=== PATIENT | female | born 1960 | race Caucasian/White ===

== ENCOUNTER 2016-08-08 14:50 | Outpatient (CLI) | payer OTHER | END 2016-08-08 14:51 | disposition home or self-care (01) | DX: M79.89 Other specified soft tissue disorders (principal) ==

== ENCOUNTER 2017-06-26 18:46 | Emergency (ER) | payer OTHER ==
[2017-06-26 18:52] VITALS: BP 149/118
[2017-06-26] MEDS ORDERED: ACETAMINOPHEN 325 MG TABLET PO STA (19:11)
[2017-06-26] MEDS ORDERED: PENICILLIN VK 250 MG TABLET PO STA (19:11)
--- NOTE | 2017-06-26 19:13 | ED Physician Documentation ---
PD HPI HEENT - Stated complaint Stated Complaint: TOOTH PX - Chief complaint Chief Complaint: Heent - History obtained from History obtained from: Patient - History of Present Illness Timing - onset: How many days ago (2) Timing - duration: Days (2) Timing - details: Gradual onset Pain level max: 9 Pain level now: 9 Location: Tooth (lower left molar, crown in place) Improves: Medication (motrin) Worsens: Other (chewing) Associated symptoms: No: Fever, Congestion, Rhinorrhea, Trismus, Unable to swallow, Swollen nodes Similar symptoms before: Diagnosis (dental caries) Recently seen: Not recently seen Review of Systems Constitutional: denies: Fever Respiratory: denies: Cough GI: denies: Abdominal Pain, Vomiting, Diarrhea Skin: denies: Rash PD PAST MEDICAL HISTORY - Past Medical History Past Medical History: Yes Cardiovascular: Hypertension Musculoskeletal: Rheumatoid arthritis - Past Surgical History 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 - Present Medications Home Medications: Ambulatory Orders Medication Instructions Recorded Confirmed Celecoxib [CeleBREX] 200 mg PO DAILY 06/26/17 06/26/17 Flaxseed Oil 1 tab PO DAILY 06/26/17 06/26/17 Hydroxychloroquine [Plaquenil] 400 mg PO DAILY 06/26/17 06/26/17 Leflunomide 10 mg PO DAILY 06/26/17 06/26/17 Lisinopril 1 mg PO DAILY 06/26/17 06/26/17 Penicillin V Potassium 500 mg PO Q6HR #40 tablet 06/26/17 Spironolactone 1 tab PO DAILY 06/26/17 06/26/17 Turmeric Root Extract [Turmeric] 1 tab PO DAILY 06/26/17 06/26/17 predniSONE [Prednisone] 1 tab PO DAILY 06/26/17 06/26/17 - Allergies Allergies/Adverse Reactions: Allergies Allergy/AdvReac Type Severity Reaction Status Date / Time Sulfa (Sulfonamide Allergy Itching Verified 06/26/17 18:53 Antibiotics) Tetracyclines Allergy Nausea Verified 06/26/17 18:53 - Social History Does the pt smoke?: No Smoking Status: Never smoker Does the pt drink ETOH?: Yes ETOH Use: Wine Does the pt have substance abuse?: No - Immunizations Immunizations are current?: Yes - POLST Patient has POLST: No PD ED PE NORMAL - Vitals Vital signs reviewed: Yes - General General: Alert and oriented X 3, No acute distress - HEENT HEENT: Moist mucous membranes, Other (L lower molar - TTP. No gingival swelling or drainable abscess. No facial swelling or cellulitis) - Neck Neck: Supple, no meningeal sign - Cardiac Cardiac: RRR - Respiratory Respiratory: No respiratory distress, Clear bilaterally - Derm Derm: Warm and dry - Neuro Neuro: Alert and oriented X 3 - Psych Psych: Normal mood, Normal affect Results - Vitals Vitals: Vital Signs - 24 hr 06/26/17 18:48 Temperature 36.8 C Heart Rate 95 Respiratory 18 Rate Blood Pressure 149/118 H O2 Saturation 100 Oxygen O2 Source Room air PD MEDICAL DECISION MAKING - ED course Complexity details: considered differential, d/w patient ED course: Patient is a 56-year-old female with what appears to be a dental infection. Will place on antibiotics and follow-up closely with her doctor. No drainable abscess. She is well-appearing, nontoxic. Afebrile. No Arjun's angina. Patient counseled regarding signs and symptoms for which I believe and urgent re -evaluation would be necessary. Patient with good understanding of and agreement to plan and is comfortable going home at this time This document was made in part using voice recognition software. While efforts are made to proofread this document, sound alike and grammatical errors may occur. Departure - Departure Disposition: 01 Home, Self Care Clinical Impression: Dental caries Condition: Good Instructions: ED Cavity Dental Follow-Up: Caitlin Rivera MD [Primary Care Provider] - Prescriptions: Penicillin V Potassium 500 mg PO Q6HR #40 tablet Comments: Take all antibiotics until gone. You can also use Tylenol in addition to the Motrin for pain. Return if you worsen. You need to follow-up with your dentist early next week for further care. Discharge Date/Time: 06/26/17 19:21
== END 2017-06-26 19:21 | disposition home or self-care (01) ==
LOC: ED 18:46
DX: K02.9 Dental caries, unspecified (principal); I10 Essential (primary) hypertension; M06.9 Rheumatoid arthritis, unspecified; Z79.52 Long term (current) use of systemic steroids
CPT/HCPCS: 99283; A9270

== ENCOUNTER 2017-06-28 05:12 | Emergency (ER) | payer OTHER ==
[2017-06-28] MEDS ORDERED: CLINDAMYCIN 900 MG/50 ML 50 ML IV ONE (05:57)
[2017-06-28] MEDS ORDERED: KETOROLAC 60 MG/2 ML VIAL IVP STA (05:57)
--- NOTE | 2017-06-28 06:01 | ED Physician Documentation ---
PD HPI HEENT - Stated complaint Stated Complaint: FACIAL SWELLING,TOOTH PAIN - Chief complaint Chief Complaint: Heent - History obtained from History obtained from: Patient - History of Present Illness Timing - onset: How many days ago (4) Location: Tooth Associated symptoms: Facial swelling, Headache. No: Fever Recently seen: Emergency Dept (2 days ago; started on PCN at that time.) - Treatment prior to arrival Treatment prior to arrival: PCN, Tylenol and Ibuprophen. - Additional information Additional information: The patient is a 56-year-old female who presents with left facial swelling. She has had a toothache in the left lower premolar for the past 4 days. She was seen here 2 days ago and was started on penicillin. She has been using Tylenol and ibuprofen for pain. Yesterday she developed left facial swelling, and it has become worse this morning. She reports associated headache. She denies fever, sore throat, or difficulty swallowing. She denies history of similar symptoms in the past. Review of Systems Constitutional: denies: Fever Eyes: denies: Irritation Ears: denies: Ear pain Nose: denies: Congestion Throat: reports: Dental pain / toothache. 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 - Present Medications Home Medications: Ambulatory Orders Medication Instructions Recorded Confirmed Celecoxib [CeleBREX] 200 mg PO DAILY 06/26/17 06/26/17 Flaxseed Oil 1 tab PO DAILY 06/26/17 06/26/17 Hydroxychloroquine [Plaquenil] 400 mg PO DAILY 06/26/17 06/26/17 Leflunomide 10 mg PO DAILY 06/26/17 06/26/17 Lisinopril 1 mg PO DAILY 06/26/17 06/26/17 Penicillin V Potassium 500 mg PO Q6HR #40 tablet 06/26/17 Spironolactone 1 tab PO DAILY 06/26/17 06/26/17 Turmeric Root Extract [Turmeric] 1 tab PO DAILY 06/26/17 06/26/17 predniSONE [Prednisone] 1 tab PO DAILY 06/26/17 06/26/17 Clindamycin HCl [Clindamycin 150MG 300 mg PO QID #56 capsule 06/28/17 CAP] HYDROcod/ACETAM 5/325 [Camp 5/325] 1 - 2 ea PO Q6H PRN #15 tablet 06/28/17 - Allergies Allergies/Adverse Reactions: Allergies Allergy/AdvReac Type Severity Reaction Status Date / Time Sulfa (Sulfonamide Allergy Itching Verified 06/28/17 05:21 Antibiotics) Tetracyclines Allergy Nausea Verified 06/28/17 05:21 - Social History Does the pt smoke?: No Smoking Status: Never smoker Does the pt drink ETOH?: Yes Does the pt have substance abuse?: No - Immunizations Immunizations are current?: Yes - POLST Patient has POLST: No PD ED PE NORMAL - Vitals Vital signs reviewed: Yes (Initially hypertensive.) - General General: Alert and oriented X 3, Well developed/nourished - HEENT HEENT: Atraumatic, EOMI, Ears normal, Pharynx benign, Other (There is swelling of the left mandibular portion of the face, with associated tenderness to palpation. There is tenderness to palpation of the left lower premolar. No Arjun's angina.) - Neck Neck: Supple, no meningeal sign, No adenopathy - Cardiac Cardiac: RRR, No murmur - Respiratory Respiratory: No respiratory distress, Clear bilaterally - Abdomen Abdomen: Soft - Derm Derm: No rash - Extremities Extremities: No edema - Neuro Neuro: Alert and oriented X 3, No motor deficit, Normal speech Results - Vitals Vitals: Vital Signs - 24 hr 06/28/17 06/28/17 05:18 07:16 Temperature 37.2 C Heart Rate 101 H 86 Respiratory 18 16 Rate Blood Pressure 188/105 H 155/97 H O2 Saturation 97 98 Oxygen O2 Source Room air Procedures - Abscess I&D (location) dental Preparation: Lidocaine 2 %, With epi Incision: Needle aspiration (No pus obtained.) Other: Pt tolerated well, Antibiotic prescribed PD MEDICAL DECISION MAKING - ED course Complexity details: reviewed old records, re-evaluated patient, considered differential, d/w patient ED course: The patient's presentation is significant for dental abscess with left facial swelling in the mandibular region. This is a progression of infection despite 2 days of antibiotic therapy with penicillin. Treatment in the emergency department included administration of clindamycin 900 mg IV. Needle aspiration was performed, but no pus was obtained. She is being discharged with prescription for clindamycin, and for Vicodin, 15 tablets. I discussed with her the antibiotic treatment, importance of urgent dental follow-up, as well as potentially worrisome signs or symptoms that should prompt reevaluation in the emergency department. Departure - Departure Disposition: 01 Home, Self Care Clinical Impression: Dental abscess Condition: Stable Instructions: ED Abscess Dental Follow-Up: Caitlin Rivera MD [Primary Care Provider] - Prescriptions: Clindamycin HCl [Clindamycin 150MG CAP] 300 mg PO QID #56 capsule HYDROcod/ACETAM 5/325 [Camp 5/325] 1 - 2 ea PO Q6H PRN #15 tablet PRN Reason: Pain Comments: Take clindamycin 4 times daily as prescribed. You can use Vicodin as prescribed as needed for pain. Follow up with your dentist as planned. Return to the emergency department if you develop increasing facial swelling, difficulty swallowing, or otherwise worsening symptoms. Discharge Date/Time: 06/28/17 07:44
[2017-06-28 07:19] VITALS: BP 155/97
== END 2017-06-28 07:44 | disposition home or self-care (01) ==
LOC: ED 05:12
DX: K04.7 Periapical abscess without sinus (principal); I10 Essential (primary) hypertension; M06.9 Rheumatoid arthritis, unspecified
CPT/HCPCS: 41800; 96365; 96375; 99283

== ENCOUNTER 2020-04-11 09:30 | Outpatient (CLI) | payer OTHER ==
[2020-04-11 09:57] LABS: BASOPHILS # (AUTO) 0.1 10^3/uL (0.0-0.1); BASOPHILS % (AUTO) 0.9 %; EOSINOPHILS # (AUTO) 0.2 10^3/uL (0.0-0.7); EOSINOPHILS % (AUTO) 2.8 %; HGB - HEMOGLOBIN 12.3 g/dL (12.0-16.0); LYMPHOCYTES # (AUTO) 1.6 10^3/uL (1.5-3.5); MEAN CORPUSCULAR HEMOGLOBIN 31.1 pg (27.0-31.0); MEAN CORPUSCULAR HGB CONC 31.9 g/dL (32.0-36.0); MEAN CORPUSCULAR VOLUME 97.2 fL (81.0-99.0); MEAN PLATELET VOLUME 9.2 fL (7.9-10.8); MONOCYTES # (AUTO) 0.3 10^3/uL (0.0-1.0); MONOCYTES % (AUTO) 6.2 %; NEUTROPHILS # (AUTO) 3.2 10^3/uL (1.5-6.6); NEUTROPHILS % (AUTO) 59.7 %; PLT - PLATELET COUNT 329 10^3/uL (130-450); RED BLOOD COUNT 3.96 10^6/uL (4.20-5.40); RED CELL DISTRIBUTION WIDTH 13.2 % (12.0-15.0); WHITE BLOOD COUNT 5.3 x10^3/uL (4.8-10.8)
[2020-04-11 10:13] LABS: ALBUMIN 4.5 g/dL (3.2-5.5); ALBUMIN/GLOBULIN RATIO 1.7 (1.0-2.2); ALKALINE PHOSPHATASE 60 IU/L (42-121); ALT ALANINE AMINOTRANSFERASE 22 IU/L (10-60); AST ASPARTATE AMINOTRANSFERASE 21 IU/L (10-42); BILIRUBIN,TOTAL 0.8 mg/dL (0.2-1.0); BUN - BLOOD UREA NITROGEN 15 mg/dL (6-20); CARBON DIOXIDE - CO2 27 mmol/L (21-32); CHLORIDE 104 mmol/L (101-111); CHOL/HDL RATIO 3.9 (<4.4); CHOLESTEROL 311 mg/dL; CREATININE 0.6 mg/dL (0.4-1.0); GLUCOSE 93 mg/dL (70-100); HDL CHOLESTEROL 79 mg/dL; LDL CHOLESTEROL,CALCULATED 210 mg/dL; LDL/HDL RATIO 2.7 (<4.4); SODIUM 141 mmol/L (135-145); TOTAL PROTEIN 7.2 g/dL (6.7-8.2); VLDL CHOLESTEROL 22 mg/dL
== END 2020-04-11 09:31 | disposition home or self-care (01) ==
LOC: LAB 09:30
PROVIDERS: ATTEND Internal Medicine Rheumatology
DX: M06.09 Rheumatoid arthritis without rheumatoid factor, multiple sites (principal); Z79.899 Other long term (current) drug therapy
CPT/HCPCS: 36415; 80053; 80061; 83721; 85025

== ENCOUNTER 2020-09-27 08:53 | Outpatient (CLI) | payer MEDICAID ==
[2020-09-27 09:13] LABS: BASOPHILS # (AUTO) 0.1 10^3/uL (0.0-0.1); BASOPHILS % (AUTO) 1.1 %; EOSINOPHILS # (AUTO) 0.2 10^3/uL (0.0-0.7); EOSINOPHILS % (AUTO) 4.2 %; HCT - HEMATOCRIT 39.1 % (37.0-47.0); LYMPHOCYTES # (AUTO) 1.2 10^3/uL (1.5-3.5); LYMPHOCYTES % (AUTO) 21.7 %; MEAN CORPUSCULAR HGB CONC 33.2 g/dL (32.0-36.0); MEAN CORPUSCULAR VOLUME 93.3 fL (81.0-99.0); MEAN PLATELET VOLUME 9.2 fL (7.9-10.8); MONOCYTES # (AUTO) 0.3 10^3/uL (0.0-1.0); MONOCYTES % (AUTO) 5.8 %; NEUTROPHILS # (AUTO) 3.7 10^3/uL (1.5-6.6); PLT - PLATELET COUNT 314 10^3/uL (130-450); RED BLOOD COUNT 4.19 10^6/uL (4.20-5.40); WHITE BLOOD COUNT 5.5 x10^3/uL (4.8-10.8)
[2020-09-27 09:26] LABS: ALBUMIN 4.5 g/dL (3.2-5.5); ALBUMIN/GLOBULIN RATIO 1.7 (1.0-2.2); ALKALINE PHOSPHATASE 68 IU/L (42-121); ALT ALANINE AMINOTRANSFERASE 16 IU/L (10-60); AST ASPARTATE AMINOTRANSFERASE 19 IU/L (10-42); BILIRUBIN,TOTAL 0.9 mg/dL (0.2-1.0); BUN - BLOOD UREA NITROGEN 17 mg/dL (6-20); CALCIUM 9.9 mg/dL (8.5-10.3); CARBON DIOXIDE - CO2 26 mmol/L (21-32); CHLORIDE 102 mmol/L (101-111); CHOL/HDL RATIO 3.8 (<4.4); CHOLESTEROL 238 mg/dL; CREATININE 0.7 mg/dL (0.4-1.0); GFR - MDRD 86 (>89); GLUCOSE 102 mg/dL (70-100); HDL CHOLESTEROL 63 mg/dL; LDL CHOLESTEROL,CALCULATED 151 mg/dL; LDL/HDL RATIO 2.4 (<4.4); SODIUM 137 mmol/L (135-145); TOTAL PROTEIN 7.2 g/dL (6.7-8.2); TRIGLYCERIDES 120 mg/dL; VLDL CHOLESTEROL 24 mg/dL
[2020-09-27 09:52] LABS: CRP - C-REACTIVE PROTEIN < 1.0 mg/dL (0-1.0)
== END 2020-09-27 08:54 | disposition home or self-care (01) ==
LOC: LAB 08:53
PROVIDERS: ATTEND Internal Medicine Rheumatology
DX: M06.00 Rheumatoid arthritis without rheumatoid factor, unspecified site (principal); Z13.220 Encounter for screening for lipoid disorders
CPT/HCPCS: 36415; 80053; 80061; 83721; 85025; 86140

== ENCOUNTER 2021-05-03 19:06 | Emergency (ER) | payer BC ==
[2021-05-03 19:16] VITALS: BP 188/97
[2021-05-03] MEDS ORDERED: AMOX/CLAV 875 MG/125 MG TABLET PO STA (19:29)
[2021-05-03] MEDS ORDERED: OXYMETAZOLINE HCL 100 SPRAYS BOTTLE NAS STA (19:29)
--- NOTE | 2021-05-03 19:31 | ED Physician Documentation ---
PD VERNON NOLASCO - Stated complaint Stated Complaint: KATHERINE/LT EYE OOZE/SORE THROAT/FEVER - Chief complaint Chief Complaint: Resp - History obtained from History obtained from: Patient - Additional information Additional information: 60-year-old woman with history of rheumatoid arthritis on immune suppressants has been sick for about 5 days with runny nose, sinus drainage, nosebleeds, and now left eye redness. She had a fever of 100.4 this evening. No sick contacts. 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 - Present Medications Home Medications: Ambulatory Orders Medication Instructions Recorded Confirmed Celecoxib [CeleBREX] 200 mg PO DAILY 06/26/17 06/26/17 Flaxseed Oil 1 tab PO DAILY 06/26/17 06/26/17 Hydroxychloroquine [Plaquenil] 400 mg PO DAILY 06/26/17 06/26/17 Leflunomide 10 mg PO DAILY 06/26/17 06/26/17 Penicillin V Potassium 500 mg PO Q6HR #40 tablet 06/26/17 Spironolactone 1 tab PO DAILY 06/26/17 06/26/17 Turmeric Root Extract [Turmeric] 1 tab PO DAILY 06/26/17 06/26/17 lisinopriL [Lisinopril] 1 mg PO DAILY 06/26/17 06/26/17 predniSONE [Prednisone] 1 tab PO DAILY 06/26/17 06/26/17 Clindamycin HCl [Clindamycin 150MG 300 mg PO QID #56 capsule 06/28/17 CAP] HYDROcod/ACETAM 5/325 [[place] 5/325] 1 - 2 ea PO Q6H PRN #15 tablet 06/28/17 Amox/Clav 875/125 [Augmentin] 1 each PO Q12H #20 tablet 05/03/21 Guaifenesin/Pseudoephedrne HCl 1 each PO BID PRN #20 ea 05/03/21 [Mucinex D ER 600-60 mg Tablet] - Allergies Allergies/Adverse Reactions: Allergies Allergy/AdvReac Type Severity Reaction Status Date / Time Sulfa (Sulfonamide Allergy Itching Verified 05/03/21 19:16 Antibiotics) Tetracyclines Allergy Nausea Verified 05/03/21 19:16 - Social History Does the pt smoke?: No Smoking Status: Never smoker Does the pt drink ETOH?: Yes Does the pt have substance abuse?: No - Immunizations Immunizations are current?: Yes - POLST Patient has POLST: No PD ED PE NORMAL - Vitals Vital signs reviewed: Yes - General General: Alert and oriented X 3, No acute distress - HEENT HEENT: PERRL, EOMI, Other (Viral appearing conjunctivitis of the left eye, mild maxillary sinus tenderness on the left, TMs normal, some dried blood on Kiesselbach's plexus bilaterally without active bleeding) - Neck Neck: Supple, no meningeal sign, No bony TTP - Cardiac Cardiac: RRR, No murmur - Respiratory Respiratory: No respiratory distress, Clear bilaterally - Abdomen Abdomen: Non tender - Derm Derm: Normal color, Warm and dry - Extremities Extremities: No edema, No calf tenderness / cord - Neuro Neuro: Alert and oriented X 3, Normal speech Results - Vitals Vitals: Vital Signs - 24 hr 05/03/21 19:10 Temperature 36.8 C Heart Rate 103 H Respiratory 18 Rate Blood Pressure 188/97 H O2 Saturation 97 Oxygen O2 Source Room air PD MEDICAL DECISION MAKING - ED course ED course: 60-year-old woman with a syndrome most compatible with adenovirus, that said she is immune suppressed with sinus symptoms and fever so seems reasonable to err on the side of giving antibiotics. For the nosebleeds we will apply some oxymetazoline and she was also given conservative measures to help with her other symptoms at home. Departure - Departure Disposition: 01 Home, Self Care Clinical Impression: Sinusitis Qualifiers: Sinusitis location: maxillary Chronicity: acute Recurrence: recurrent Qualified Code(s): J01.01 - Acute recurrent maxillary sinusitis Condition: Good Record reviewed to determine appropriate education?: Yes Instructions: ED Sinusitis Abx Tx, ED Viral Syndrome Prescriptions: Amox/Clav 875/125 [Augmentin] 1 each PO Q12H #20 tablet Guaifenesin/Pseudoephedrne HCl [Mucinex D ER 600-60 mg Tablet] 1 each PO BID PRN #20 ea PRN Reason: congestion Comments: Your prescriptions were sent electronically to [facility] in [place]. As discussed, the syndrome for the most part seems viral but given that you are immune suppressed seems reasonable to treat you with antibiotics especially in light of the fever and potential sinus infection. For the nosebleeds use the oxymetazoline and keep the nares moist with Vaseline. For the eye artificial tears or Visine would be helpful. Call your doctor to arrange a follow-up appointment, make the next available appointment. In the interim, return anytime if worse or if new symptoms develop.
== END 2021-05-03 19:40 | disposition home or self-care (01) ==
LOC: ED 19:06
DX: J01.01 Acute recurrent maxillary sinusitis (principal); R04.0 Epistaxis; H10.9 Unspecified conjunctivitis; R50.9 Fever, unspecified; M06.9 Rheumatoid arthritis, unspecified; D84.9 Immunodeficiency, unspecified
CPT/HCPCS: 99282; A9270

== ENCOUNTER 2022-02-19 08:37 | Outpatient (CLI) | payer BC ==
[2022-02-19 08:49] LABS: BASOPHILS # (AUTO) 0.1 10^3/uL (0.0-0.1); EOSINOPHILS # (AUTO) 0.2 10^3/uL (0.0-0.7); EOSINOPHILS % (AUTO) 4.2 %; HGB - HEMOGLOBIN 13.3 g/dL (12.0-16.0); LYMPHOCYTES # (AUTO) 1.5 10^3/uL (1.5-3.5); LYMPHOCYTES % (AUTO) 29.1 %; MEAN CORPUSCULAR HEMOGLOBIN 31.4 pg (27.0-31.0); MEAN CORPUSCULAR HGB CONC 33.3 g/dL (32.0-36.0); MEAN CORPUSCULAR VOLUME 94.3 fL (81.0-99.0); MEAN PLATELET VOLUME 9.2 fL (7.9-10.8); MONOCYTES # (AUTO) 0.3 10^3/uL (0.0-1.0); MONOCYTES % (AUTO) 6.4 %; NEUTROPHILS # (AUTO) 2.9 10^3/uL (1.5-6.6); NEUTROPHILS % (AUTO) 58.9 %; PLT - PLATELET COUNT 306 10^3/uL (130-450); RED BLOOD COUNT 4.24 10^6/uL (4.20-5.40)
[2022-02-19 09:08] LABS: ALBUMIN 4.4 g/dL (3.2-5.5); ALBUMIN/GLOBULIN RATIO 1.8 (1.0-2.2); ALKALINE PHOSPHATASE 54 IU/L (42-121); ALT ALANINE AMINOTRANSFERASE 35 IU/L (10-60); AST ASPARTATE AMINOTRANSFERASE 28 IU/L (10-42); BILIRUBIN,TOTAL 0.6 mg/dL (0.2-1.0); BUN - BLOOD UREA NITROGEN 14 mg/dL (6-20); CARBON DIOXIDE - CO2 29 mmol/L (21-32); CHLORIDE 103 mmol/L (101-111); CHOL/HDL RATIO 3.7 (<4.4); CHOLESTEROL 250 mg/dL; CREATININE 0.6 mg/dL (0.4-1.0); GFR - MDRD 102 (>89); GLUCOSE 96 mg/dL (70-100); HDL CHOLESTEROL 67 mg/dL; LDL CHOLESTEROL,CALCULATED 161 mg/dL; LDL/HDL RATIO 2.4 (<4.4); POTASSIUM 4.1 mmol/L (3.5-5.0); SODIUM 139 mmol/L (135-145); TOTAL PROTEIN 6.9 g/dL (6.7-8.2); TRIGLYCERIDES 108 mg/dL; VLDL CHOLESTEROL 22 mg/dL
[2022-02-19 09:09] LABS: CRP - C-REACTIVE PROTEIN < 1.0 mg/dL (0-1.0)
== END 2022-02-19 08:38 | disposition home or self-care (01) ==
LOC: LAB 08:37
PROVIDERS: ATTEND Internal Medicine Rheumatology
DX: M06.09 Rheumatoid arthritis without rheumatoid factor, multiple sites (principal); E78.5 Hyperlipidemia, unspecified; Z79.899 Other long term (current) drug therapy
CPT/HCPCS: 36415; 80053; 80061; 83721; 85025; 86140

== ENCOUNTER 2023-06-09 14:12 | Outpatient (CLI) | payer BC ==
--- NOTE | 2023-06-10 15:56 | Mammography Report ---
BILATERAL DIGITAL SCREENING MAMMOGRAM 3D/2D: 06/09/2023 CLINICAL: New baseline exam. Routine screening. No prior exams were available for comparison. Both breasts are heterogeneously dense, which may obscure small masses (category c / 51-75% glandular tissue). No significant masses, calcifications, or other findings are seen in either breast. IMPRESSION: NEGATIVE There is no mammographic evidence of malignancy. A 1 year screening mammogram is recommended. Based on the Tyrer Cuzick model (a risk assessment model) the patient's lifetime risk is 17.0% and he r 10 year risk is 7.7%. According to the ACR, ACS, and NCCN guidelines, an annual breast MRI exam lori ng with mammogram is recommended if the patients lifetime risk is 20% or greater. This exam was interpreted at Station ID: [id number]. NOTE: For mammograms, a report in lay terms will be sent to the patient. Approximately 15% of breast malignancies will not be visualized mammographically. In the management of a palpable breast mass, a negative mammogram must not discourage biopsy of a clinically suspicious lesion. Electronically Signed By: Kody eli/jona:06/09/2023 18:21:40 letter sent: No_Letter ACR BI-RADS Category 1: Negative [id number] PARENCHYMAL PATTERN: (D) - The breast(s) demonstrate(s) heterogeneously dense fibroglandular parkalyany carlos enrique. BI-RADS CATEGORY: (1) - 1 Mammogram [id number] 1 year screening LATERALITY: (B)
== END 2023-06-09 14:13 | disposition home or self-care (01) ==
LOC: DI 14:12
DX: Z12.31 Encounter for screening mammogram for malignant neoplasm of breast (principal); R92.333 Mammographic heterogeneous density, bilateral breasts

== ENCOUNTER 2023-07-15 09:48 | Outpatient (CLI) | payer BC ==
--- NOTE | 2023-07-15 16:51 | DEXA Report ---
PROCEDURE: Dexa Spine and/or Hip INDICATIONS: POST MENOPAUSAL TECHNIQUE: Dual energy x-ray absorptiometry (DXA) was performed on a [employer] System. Regions measur ed are the AP Spine, femoral neck, and if needed forearm. COMPARISON: None FINDINGS: Lumbar Spine: Bone Mineral Density: 1.072 g/cm/cm,T score: -0.9. Left Femoral Neck: Bone Mineral Density: 0.758 g/cm/cm, T score: -2.0. Left Hip: Bone Mineral Density: 0.808 g/cm/cm,T score: -1.6. (T score greater or equal to -1.0: NORMAL) (T score from -1.1 to -2.4: OSTEOPENIA) (T score less than or equal to -2.5 to: OSTEOPOROSIS) Impression: By WHO criteria, this patient has moderate osteopenia in the femoral neck, mild in the left hip. Patients with diagnosis of osteoporosis or osteopenia should have regular bone mineral density assess ment. For those eligible for Medicare, routine testing is allowed once every 2 years. Testing frequ ency can be increased for patients who have rapidly progressing disease or for those who are receivin g medical therapy to restore bone mass. Reviewed by: Oly Figueroa MD on 07/15/2023 4:50 PM PST Approved by: Oly Figueroa MD on 07/15/2023 4:50 PM PST Station ID: [id number]
== END 2023-07-15 09:49 | disposition home or self-care (01) ==
LOC: DI 09:48
PROVIDERS: ATTEND Nurse Practitioner
DX: M85.89 Other specified disorders of bone density and structure, multiple sites (principal); Z79.52 Long term (current) use of systemic steroids